=== PATIENT | male | born 1990 | race African-American/Black ===

== ENCOUNTER 2017-02-05 23:53 | Emergency (ER) | payer OTHER ==
[~2017-02-05] VITALS: Ht 170.2 cm; Wt 65.0 kg
[2017-02-06] VITALS: BP 141/80; PULSE 76; RESP 18; TEMP 98.4; O2SAT 100
[2017-02-06] MEDS ORDERED: LIDOCAINE HCL 1% 50 ML VIAL INFIL ONE (00:30)
[2017-02-06] MEDS ORDERED: TETANUS/DIPHTHERIA TOXOID ADULT 0.5 ML VIAL IM ONE (00:30)
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
--- NOTE | 2017-02-06 01:13 | PD ---
Physical Exam Time Seen by Provider: 00:45 Data Data Last Documented VS Vital Signs Date Time Temp Pulse Resp B/P (MAP) Pulse Ox O2 Delivery O2 Flow Rate FiO2 02/06/17 00:00 98.4 76 18 141/80 (100) 100 Orders Orders Lidocaine 1% Inj (50 Ml) (Xylocaine 1% I (02/06/17 00:30) Hand, Complete ([id number]) (02/06/17 ) Tetanus/Diphtheria Tox Adult (Tetanus/Di (02/06/17 00:30) MDM Medical Record Reviewed: Yes Supervised Visit with CHELY: No Narrative Course 26-year-old male here with laceration to left eyebrow which I was asked to repair. He verbally consented. Procedures Procedure Narrative LACERATION LOCATION: Left eyebrow LENGTH: 2 cm NUMBER OF STITCHES/MONTY: 6 REPAIR: The area of the laceration was prepped with Betadine and sterilely draped. The laceration was infiltrated with 1 percent lidocaine. The wound was copiously irrigated and explored without evidence of foreign body, tendon injury or neurovascular injury. The wound was closed using 6-0 PROLENE simple interrupted. This was a single layer repair. A sterile dressing was applied. The patient was advised to keep the dressing clean and dry. Patient tolerated the procedure well. Scripts No Active Prescriptions or Reported Meds Syed Leahy Feb 06, 2017 01:13
[2017-02-06] MEDS ORDERED: CEPH-460 PO (01:15)
[2017-02-06] MEDS ORDERED: CEPHALEXIN MONOHYDRATE 500 MG CAP PO ONE (01:30)
== END 2017-02-06 01:32 | disposition home or self-care (01) ==
LOC: NEPC 23:53
DX: S01.112A Laceration without foreign body of left eyelid and periocular area, initial encounter (principal); F17.200 Nicotine dependence, unspecified, uncomplicated; V09.20XA Pedestrian injured in traffic accident involving unspecified motor vehicles, initial encounter; Z23 Encounter for immunization
CPT/HCPCS: 12011; 73130; 90471; 90714